=== PATIENT | male | born 1990 | race Caucasian/White ===

== ENCOUNTER 2022-12-25 21:20 | Emergency (ER) | payer BC, SELFPAY ==
[2022-12-25 21:34] VITALS: BP 141/86; PULSE 99; RESP 16; TEMP 36.8; O2SAT 100
--- NOTE | 2022-12-25 22:24 | ED_ITS ---
HPI - Wound/Laceration General Chief Complaint: Laceration/Wound Stated Complaint: cut his left finger Time Seen by Provider: 12/25/22 21:49 History of Present Illness HPI narrative: Patient is a 32-year-old gentleman who was sharpening a knife tonight. Patient sliced the lateral aspect of his left 5th upper extremity digit. He suffered a flap laceration a total length of 4 cm. No neural muscular deficits 2018 was his most recent tetanus shot. Hemostasis has been achieved. Patient has no other complaints or injuries. Related Data Home Medications Medication Instructions Recorded Confirmed No Known Home Medications 12/25/22 12/25/22 Allergies Allergy/AdvReac Type Severity Reaction Status Date / Time No Known Drug Allergies Allergy Verified 12/25/22 21:36 Review of Systems Status of ROS: Reports: 6 or more systems reviewed and unremarkable except as noted in History and below PFSH [facility] Social History Smoking Status: Never smoker How often do you have a drink containing alcohol: never AUDIT-C Alcohol total score: 0 Non-prescribed substance use: denies use Exam Narrative: Exam Narrative: EXAM GENERAL: Patient appears comfortable and well. EYES: No scleral icterus. ENT: Tympanic membranes and oropharynx normal. SKIN: Laceration as described above 5th digit left upper extremity EXT: No dependent lower extremity pedal edema. ABD: Soft, non tender, non distended. PSYCH: Good eye contact, speech is not pressured. Const: Vital Signs, click to edit/add: Vital Signs - 24 hr 12/25/22 21:34 Temperature 98.2 F Pulse Rate [Right Pulse Oximeter] 99 Respiratory Rate 16 Blood Pressure [Ri ght Upper Arm] 141/86 H Pulse Oximetry 100 Oxygen Delivery Me thod Room Air Course Course Hospital Course: Patient was seen examined. Digital block was performed using 5 mL of 2% lidocaine without epinephrine. Wound was cleaned. The defect was closed with a total 6 3-0 Ethilon sutures. Tube gauze was placed a pressure dressing was placed patient is instructed on wound care. Sutures out in 9 days. Vital Signs Vital signs: Initial Vital Signs Temperature 98.2 F 12/25/22 21:34 Temperature Source Temporal Artery Scan 12/25/22 21:34 Pulse Rate 99 12/25/22 21:34 Pulse Rhythm Regular 12/25/22 21:34 Respiratory Rate 16 12/25/22 21:34 Blood Pressure 141/86 H 12/25/22 21:34 Blood Pressure Mean 104 12/25/22 21:34 Blood Pressure Position Sitting 12/25/22 21:34 Pulse Oximetry 100 12/25/22 21:34 Oxygen Delivery Method Room Air 12/25/22 21:34 Vital Signs Temperature 98.2 F 12/25/22 21:34 Pulse Rate 99 12/25/22 21:34 Respiratory Rate 16 12/25/22 21:34 Blood Pressure 141/86 H 12/25/22 21:34 Pulse Oximetry 100 12/25/22 21:34 Oxygen Delivery Method Room Air 12/25/22 21:34 Temperature 98.2 F 12/25/22 21:34 Pulse Rate 99 12/25/22 21:34 Respiratory Rate 16 12/25/22 21:34 Blood Pressure 141/86 H 12/25/22 21:34 Pulse Oximetry 100 12/25/22 21:34 Oxygen Delivery Method Room Air 12/25/22 21:34 MDM - Wound/Laceration MDM Narrative Medical decision making narrative: As above Discharge Plan Discharge Clinical Impression: Laceration Patient Disposition: Home, Self-Care Condition: Stable Instructions: Laceration (ED) Additional Instructions: Daily dressing changes Triple antibiotic Sutures out in 9 days Activity Level: No Restrictions Discharge Diet: Regular Prescriptions: No Action No Known Home Medications Stand Alone Forms: My[employer] Info Instructions
--- NOTE | 2022-12-25 22:32 | ED.NURSE ---
Dressed pressure dressing over sutures and reviewed discharge wound care instructions with patient. Verbalized understanding. Applied telfa, rolled gauzed, and secured in place with coban.
== END 2022-12-25 22:57 | disposition home or self-care (01) ==
LOC: ED 22:41
PROVIDERS: Emergency Provider Internal Medicine
DX: S61.217A Laceration without foreign body of left little finger without damage to nail, initial encounter (principal); W26.0XXA Contact with knife, initial encounter
CPT/HCPCS: 12002; 99283